=== PATIENT | female | born 1990 | race Caucasian/White ===

== ENCOUNTER 2025-03-15 02:20 | Emergency (ER) | payer MEDICAID ==
[~2025-03-15] VITALS: Ht 162.6 cm; Wt 66.5 kg
[~2025-03-15 02:20] MED LIST: CEPH-357 PO; NO HOME MEDS
--- NOTE | 2025-03-15 02:42 | Physician Documentation ---
History of Present Illness ~ Chief Complaint: Vomiting Stated Complaint: VOMITING Time Seen by MD: 02:37 [facility] Patient presents to the emergency room with two day history of nausea and vomiting. No diarrhea. No unusual foods and no sick contacts. She started to feel ill upon wakening day before yesterday and progressed to the point where she is vomiting has not has been able to tolerate anything by mouth. Denies fevers. No significant abdominal pain Medication Reconciliation Allergies: Coded Allergies: latex (Verified Allergy, Unknown, RASH, 03/15/25) metronidazole (Verified Allergy, Unknown, TASTE AND SMELL GOES AWAY, 03/15/25) Scheduled Cephalexin Monohydrate* (Keflex*), 500 MG PO TID Miscellaneous Medications Home Med List (No Home Medications), (Reported) Past Medical History Past Medical History: No Pertinent History Past Surgical History: appendectomy Alcohol Use: None Drug Use: none Lives with: Family Lives In: Home Occupation: employed Review of Systems ROS All review of systems negative except as per HPI Physical Exam Vital Signs: Temperature: 98.4, Source: Oral, Heart Rate: 110, Respiratory Rate: 16, BP: 116/84, Pulse Oximetry: 98, Weight: 66.450 Oxygen Flow Rate: 0 Physical Exam General: Patient is awake, alert, oriented x4 in no acute distress Head: Normocephalic and atraumatic. Eyes: Conjunctival normal. EOMI. PERRL. ENT: Mucous membranes moist. Neck: Supple, trachea is midline. Chest: Clear to auscultation bilaterally without rales, rhonchi, or wheezes. There is no accessory muscle use or retractions. Cardiac: Tachycardic and regular without murmurs, gallops, or rubs. Abd: Soft, nondistended, nontender, with normoactive bowel sounds. No guarding, rebound, or rigidity. Progress Results/Orders Results/Orders Orders - DOUG MENDOZA MD Urinalysis, Cult If Indicated (03/15/25 02:35) Hcg, Ur Ql (03/15/25 02:35) Completed Orders - DOUG MENDOZA MD Cbc/Diff (03/15/25 02:35) BMP (03/15/25 02:35) Lipase (03/15/25 02:35) CMP (03/15/25 02:35) Normal Saline 1000ml (0.9% Sodium Chlori (03/15/25 02:35) Ondansetron Inj. (Zofran 4mg/2ml Vial) (03/15/25 02:35) Normal Saline 1000ml (0.9% Sodium Chlori (03/15/25 02:45) Ondansetron Inj. (Zofran 4mg/2ml Vial) (03/15/25 02:45) Metoclopramide Inj (Reglan Inj) (03/15/25 03:35) Diphenhydramine Inj (Benadryl Inj.) (03/15/25 03:35) Ketorolac Trometh 15mg/Ml Vial (Toradol (03/15/25 03:35) Pantoprazole 40mg Iv (Protonix 40mg Iv) (03/15/25 03:35) Medications Received in ER Medications (Trade) Dose Ordered Sig/Dontae Route PRN Reason Start Time Stop Time Status Last Admin Dose Admin (0.9% sodium chloride (NS) 1000ml IV soln) 1,000 ml ONCE ONCE IVB 03/15/25 02:35 03/15/25 02:36 DC 03/15/25 02:50 1,000 ML (Zofran 4mg/2ml vial) 4 mg ONCE ONCE IV 03/15/25 02:35 03/15/25 02:37 DC 03/15/25 02:50 4 MG Sodium Chloride 1,000 ml @ 1,000 mls/hr ONCE ONCE IV 03/15/25 02:45 03/15/25 03:44 DC 03/15/25 02:50 1,000 MLS/HR (Zofran 4mg/2ml vial) 4 mg ONCE ONCE IV 03/15/25 02:45 03/15/25 02:53 DC 03/15/25 02:55 4 MG (Reglan inj) 10 mg ONCE ONCE IV 03/15/25 03:35 03/15/25 03:36 DC 03/15/25 03:41 10 MG (Benadryl inj.) 25 mg ONCE ONCE IV 03/15/25 03:35 03/15/25 03:36 DC 03/15/25 03:41 25 MG (Toradol injection) 15 mg ONCE ONCE IV 03/15/25 03:35 03/15/25 03:36 DC 03/15/25 03:43 15 MG (Protonix 40mg IV) 80 mg ONCE ONCE IV 03/15/25 03:35 03/15/25 03:47 DC 03/15/25 03:54 80 MG Vital Signs 03/15/25 03/15/25 03/15/25 02:25 02:57 03:00 Temp 98.4 98.4 Pulse 110 78 Resp 16 18 14 B/P (MAP) 116/84 117/80 (92) Pulse Ox 98 97 O2 Flow Rate 0 0 Laboratory Tests Test 03/15/25 02:44 White Blood Count 10.8 Red Blood Count 5.00 Hemoglobin 14.4 Hematocrit 42.9 Mean Corpuscular Volume 85.9 Mean Corpuscular Hemoglobin 28.9 Mean Corpuscular Hemoglobin Concent 33.6 Red Cell Distribution Width 13.2 Platelet Count 211 Mean Platelet Volume 10.1 Neutrophils (%) (Auto) 70.7 Lymphocytes (%) (Auto) 18.7 L Monocytes (%) (Auto) 8.8 Eosinophils (%) (Auto) 0.9 Basophils (%) (Auto) 0.9 Neutrophils # (Auto) 7.7 Lymphocytes # (Auto) 2.0 Monocytes # (Auto) 1.0 H Eosinophils # (Auto) 0.1 Basophils # (Auto) 0.1 CBC Comment Sodium Level 135 Potassium Level 3.5 Chloride Level 102 Carbon Dioxide Level 21.2 L Anion Gap 12 Blood Urea Nitrogen 14 Creatinine 0.71 Estimated GFR/1.73 m2 > 90 BUN/Creatinine Ratio 19.7 Glucose Level 91 Calcium Level 9.2 Total Bilirubin 2.5 H Aspartate Amino Transf (AST/SGOT) 19 Alanine Aminotransferase (ALT/SGPT) 20 Alkaline Phosphatase 82 Total Protein 8.4 H Albumin 4.1 Globulin 4.3 Albumin/Globulin Ratio 1.0 L Lipase 35 Chemistry Comments Medical Decision Making Findings Patient presents to the emergency room with vomiting. Differentials include but are not limited to , dehydration, viral syndrome, food poisoning, electrolyte disturbances therefore emergent labs ordered which were reassuring. Patient was responding to therapy reports that she has had by tubal ligation therefore he had not feel require urinalysis. She is now tolerating p.o. and feeling much better. Departure Disposition: 01 HOME / SELF CARE / HOMELESS Impression: Primary Impression: Vomiting Condition: Improved Discharge Instructions: Nausea and Vomiting, Adult Referrals: NO PRIMARY CARE PROVIDER (PCP) Prescriptions Ondansetron 8mg ODT (Ondansetron Odt) 8 Mg Tab.rapdis 1 TAB PO Q6H for nausea/vomiting for 3 Days, #12 TAB 0 Refills Prov: DOUG MENDOZA MD 03/15/25 Education Educated: Patient Educated regarding: diagnosis, treatment, need for follow up Signature Scribe Signature: No scribe Attestation: The note accurately reflects work and decisions made by me.Doug Mendoza MD 03/15/25 04:44 DOUG MENDOZA MD Mar 15, 2025 02:42
[2025-03-15] MEDS: normal saline 1000ml 1,000 ML IV ONE (02:50)
[2025-03-15] MEDS: normal saline 1000ML IV soln IVB ONE (02:50)
[2025-03-15] MEDS: ondansetron/PF 4mg/2ml inj IV ONE ×2 (02:50→02:55)
[2025-03-15 02:51] LABS: MEAN PLATELET VOLUME 10.1 FL (7.4-10.4); RED CELL DISTRIBUTION WIDTH 13.2 % (11.5-14.5)
[2025-03-15 03:04] LABS: CREATININE 0.71 MG/DL (0.40-0.90); TOTAL CARBON DIOXIDE 21.2 MMOL/L (24-32); eCRCL 95 ML/MIN; eGFR > 90 ML/MIN
[2025-03-15] MEDS: metoclopramide 5 mg/ml inj IV ONE (03:41)
[2025-03-15] MEDS: ketorolac trometh 15mg/ml vial 15 MG/ML ML IV ONE (03:43)
[2025-03-15] MEDS ORDERED: ONDA-245 PO (04:43)
[2025-03-15 04:51] LABS: LEUKOCYTE ESTERASE ,URINE NEGATIVE (Neg); NITRITES, URINE NEGATIVE (Neg); OCCULT BLOOD,URINE NEGATIVE (Neg)
[2025-03-15 04:55] LABS: UA COLLECTION TYPE CLN CATCH MIDSTREAM
[2025-03-15 05:00] LABS: URINE HCG NEGATIVE (NEG)
[2025-03-15 05:03] VITALS: BP 106/69; PULSE 77; RESP 14; TEMP 98.4; O2SAT 98
[2025-03-15 05:04] LABS: MUCUS STRANDS MANY /LPF (Neg); SQUAMOUS EPITHELIAL CELL,UR MANY /LPF (FEW)
== END 2025-03-15 05:05 | disposition home or self-care (01) ==
LOC: ER 02:20
DX: R11.10 Vomiting, unspecified (principal); Z90.49 Acquired absence of other specified parts of digestive tract; Z91.040 Latex allergy status
CPT/HCPCS: 36415; 80053; 81001; 81025; 83690; 85025; 96361; 96374; 96375; 99284; J1200; J1885; J2405; J2470; J2765; J7030